=== PATIENT | male | born 1985 | race Caucasian/White ===

== ENCOUNTER 2017-12-30 03:14 | Emergency (ER) | payer BC ==
[2017-12-30 03:27] VITALS: BP 143/92; PULSE 69; RESP 18; TEMP 98
[2017-12-30] MEDS ORDERED: PENICILLIN VK 500MG STARTER 4 TAB BTL PO STA (03:58)
[2017-12-30] MEDS ORDERED: DEXAMETHASONE SOD PHOSPHATE 10 MG/ML 1 ML VIAL IM STA (03:58)
--- NOTE | 2017-12-30 04:00 | ED ---
ENT HPI - General Chief complaint: ENT Stated complaint: Sore throat Time Seen by Provider: 12/30/17 03:30 Source: patient Mode of arrival: ambulatory Limitations: no limitations - History of Present Illness Initial comments: 32-year-old male patient presents the emergency department today for evaluation of sore throat and throat swelling. Patient states he woke up around 1:30 this morning feeling that his throat was swollen. Patient states that he fell asleep in the reclining chair with his head back, states he was snoring more than usual and he woke up when he felt like he couldn't breathe. Patient denies any fever, chills, nasal congestion, or nasal drainage. Denies any history of similar symptoms. Patient denies any recent rash, shortness breath, chest pain, abdominal pain, nausea, vomiting, diarrhea, constipation, back pain , numbness, tingling, dizziness, weakness, hematuria, dysuria, urinary urgency, urinary frequency, headache, visual changes, or any other complaints. - Related Data Previous Rx's Medication Instructions Recorded Penicillin V Potassium [Pen Vee K] 500 mg PO Q6H #40 tablet 12/30/17 Allergies Allergy/AdvReac Type Severity Reaction Status Date / Time No Known Allergies Allergy Verified 12/30/17 03:26 Review of Systems ROS Statement: Those systems with pertinent positive or pertinent negative responses have been documented in the HPI. ROS Other: All systems not noted in ROS Statement are negative. Past Medical History Past Medical History: No Reported History History of Any Multi-Drug Resistant Organisms: None Reported Past Surgical History: Orthopedic Surgery Past Psychological History: No Psychological Hx Reported Smoking Status: Former smoker Past Alcohol Use History: None Reported Past Drug Use History: None Reported General Exam Limitations: no limitations General appearance: alert, in no apparent distress, other (This is a well- developed, well-nourished adult male patient in no acute distress. Vital signs upon presentation are temperature 98.2F, pulse 69, respirations 18, blood pressure 143/92, pulse ox 99% on room air.) Eye exam: Present: normal appearance, PERRL, EOMI. Absent: scleral icterus, conjunctival injection, periorbital swelling ENT exam: Present: mucous membranes moist, other (Patient has edematous, erythematous uvula with what appeared to be petechial hemorrhages. There is some erythema over the tonsils but no tonsillar hypertrophy. Patient is speaking, swelling, and breathing without difficulty.). Absent: normal exam, normal oropharynx Neck exam: Present: normal inspection. Absent: tenderness, meningismus, lymphadenopathy Respiratory exam: Present: normal lung sounds bilaterally. Absent: respiratory distress, wheezes, rales, rhonchi, stridor Cardiovascular Exam: Present: regular rate, normal rhythm, normal heart sounds. Absent: systolic murmur, diastolic murmur, rubs, gallop, clicks GI/Abdominal exam: Present: soft, normal bowel sounds. Absent: distended, tenderness, guarding, rebound, rigid Neurological exam: Present: alert, oriented X3, CN II-XII intact Psychiatric exam: Present: normal affect, normal mood Skin exam: Present: warm, dry, intact, normal color. Absent: rash Course Vital Signs 12/30/17 03:23 Temperature 98 F Pulse Rate 69 Respiratory 18 Rate Blood Pressure 143/92 O2 Sat by Pulse 99 Oximetry Medical Decision Making - Medical Decision Making 32-year-old male patient presented to the emergency department today for evaluation of sore and swollen throat. Physical examination did reveal edematous, erythematous uvula consistent with uvulitis. Patient was given IM dose of Decadron. He'll be treated with penicillin. He is instructed to follow -up with Dr. Kelly for further evaluation. Return parameters were discussed in detail. He verbalizes understanding and agrees with this plan. - Lab Data Lab Results 12/30/17 Range/Units 03:39 Group A Strep Rapid Negative (Negative) Disposition Clinical Impression: Uvulitis Disposition: HOME SELF-CARE Condition: Good Instructions: Uvulitis (ED) Additional Instructions: Complete antibiotic prescription in full. Follow up with ears, nose, and throat specialist for further evaluation. Return here immediately for any new, worsening, or concerning symptoms. Prescriptions: Penicillin V Potassium [Pen Vee K] 500 mg PO Q6H #40 tablet Is patient prescribed a controlled substance at d/c from ED?: No Referrals: Matty Lechuga MD [Primary Care Provider] - 1-2 days Rowdy Kelly DO [Doctor of Osteopathic Medicine] - 1-2 days Time of Disposition: 03:59
== END 2017-12-30 04:15 | disposition home or self-care (01) ==
LOC: EC 03:14
DX: K12.2 Cellulitis and abscess of mouth (principal); J02.9 Acute pharyngitis, unspecified; Z87.891 Personal history of nicotine dependence
CPT/HCPCS: 99283 ×2; 96372 ×2; 87081; 87430; J1100

== ENCOUNTER 2018-01-26 16:14 | Emergency (ER) | payer BC ==
[2018-01-26 16:24] VITALS: BP 154/95; PULSE 96; RESP 20; TEMP 98.4
[2018-01-26] MEDS ORDERED: ceFAZolin IN SWFI 2 GM/20 ML SYRINGE IVP STA (16:33)
--- NOTE | 2018-01-26 16:36 | ED ---
Extremity Problem HPI - General Chief complaint: Extremity Problem,Nontraumatic Stated complaint: knee swelling Time Seen by Provider: 01/26/18 16:27 Source: patient, RN notes reviewed, old records reviewed Mode of arrival: ambulatory Limitations: no limitations - History of Present Illness Initial comments: 32-year-old male presents emergency room seems to plan of left knee pain and redness and swelling for the past day. He reports that yesterday he had a small pimple over the anterior aspect of the knee. 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 Patient reports that he popped the pimple had a small amount of pus coming from the area. Patient reports that he woke up this morning he had significant swelling and redness of the knee. He denies any pain with range of motion of this time. Patient relates is had no fevers or chills. - Related Data Previous Rx's Medication Instructions Recorded Cephalexin [Keflex] 500 mg PO Q6HR 14 Days 01/26/18 Ibuprofen [Motrin] 600 mg PO Q6HR PRN #20 tab 01/26/18 L.acidoph,Paracasei, B.lactis 1 each PO DAILY #30 capsule 01/26/18 [Probiotic] Sulfamethox-Tmp 800-160Mg [Bactrim 2 tab PO Q12HR 14 Days 01/26/18 DS 800-160 mg] Allergies Allergy/AdvReac Type Severity Reaction Status Date / Time No Known Allergies Allergy Verified 01/26/18 16:27 Review of Systems ROS Statement: Those systems with pertinent positive or pertinent negative responses have been documented in the HPI. ROS Other: All systems not noted in ROS Statement are negative. Past Medical History Past Medical History: No Reported History History of Any Multi-Drug Resistant Organisms: None Reported Past Surgical History: Orthopedic Surgery Past Psychological History: No Psychological Hx Reported Smoking Status: Former smoker Past Alcohol Use History: None Reported Past Drug Use History: None Reported General Exam - General Exam Comments Initial Comments: This is a 32-year-old male. Alert and oriented. No significant distress. Limitations: no limitations General appearance: alert, in no apparent distress Head exam: Present: atraumatic Eye exam: Present: normal appearance, PERRL, EOMI. Absent: scleral icterus, conjunctival injection, periorbital swelling ENT exam: Present: normal exam, normal oropharynx, mucous membranes moist Neck exam: Present: normal inspection Respiratory exam: Present: normal lung sounds bilaterally. Absent: respiratory distress, wheezes, rales, rhonchi, stridor Cardiovascular Exam: Present: regular rate, normal rhythm, normal heart sounds. Absent: systolic murmur, diastolic murmur, rubs, gallop, clicks Left Upper Leg exam: Present: normal inspection, full ROM Knee exam: Present: full ROM (Patient has surrounding erythema and swelling over the prepatellar bursa.), tenderness (Has tenderness and swelling noted to the prepatellar bursa.), swelling, erythema. Absent: normal inspection, abrasion, laceration, ecchymosis, deformity Lower Leg exam: Present: normal inspection, full ROM Ankle exam: Present: normal inspection, full ROM Foot/Toe exam: Present: normal inspection, full ROM Neurovascular tendon exam: Present: no vascular compromise Gait: observed and normal Neurological exam: Present: alert, oriented X3, CN II-XII intact Psychiatric exam: Present: normal affect, normal mood Skin exam: Present: warm, dry, intact, normal color. Absent: rash Course Vital Signs 01/26/18 16:21 Temperature 98.4 F Pulse Rate 96 Respiratory 20 Rate Blood Pressure 154/95 O2 Sat by Pulse 100 Oximetry Medical Decision Making - Medical Decision Making is a 32-year-old male presents to tingling of redness swelling and warmth for the past day over his left knee. 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 Patient has evidence of a trip follower bursitis. He did have a small pimple-like area that he popped yesterday. At this time he does likely have some surrounding cellulitis. Range of motion was intact and no significant pain with flexion extension of the knee. Patient did have lab work obtained. We did obtain blood cultures. X-ray of the knee shows evidence of soft tissue swelling but no acute osseous abnormality. I did use the ultrasound over the knee and did identify a significant patellar bursa. I discussed that at this time I do not want to drain the knee and the need to follow-up with orthopedic. However we will start the Patient on anabiotic's. Given referral for compound specialist and anti-inflammatory medication. - Radiology Data Radiology results: report reviewed Soft tissue swelling relating to patellar bursitis. No evidence of any acute fracture. No evidence of foreign body. Disposition Clinical Impression: Bursitis of left knee Disposition: HOME SELF-CARE Condition: Good Instructions: Knee Bursitis (ED) Additional Instructions: Patient has follow-up with primary care physician. Patient should follow-up with compound specialist tomorrow for reevaluation. Take the antibiotic as prescribed. Patient should rest, ice, elevate extremity. Return to the emergency department if any alarming signs or symptoms occur. Prescriptions: Cephalexin [Keflex] 500 mg PO Q6HR 14 Days Ibuprofen [Motrin] 600 mg PO Q6HR PRN #20 tab PRN Reason: Pain L.acidoph,Paracasei, B.lactis [Probiotic] 1 each PO DAILY #30 capsule Sulfamethox-Tmp 800-160Mg [Bactrim DS 800-160 mg] 2 tab PO Q12HR 14 Days Is patient prescribed a controlled substance at d/c from ED?: No Referrals: Matty Lechuga MD [Primary Care Provider] - 1-2 days Michael Cole MD [Medical Doctor] - 1-2 days Time of Disposition: 17:00
[2018-01-26] MEDS ORDERED: SULFAMETH-TMP DS STARTER PACK 2 TAB BTL PO STA (16:38)
[2018-01-26] MEDS ORDERED: KETOROLAC 30 MG/ML 1 ML VIAL IVP STA (17:00)
--- NOTE | 2018-01-26 17:08 | XR ---
EXAMINATION TYPE: XR knee complete LT DATE OF EXAM: 01/26/2018 COMPARISON: NONE HISTORY: Knee pain TECHNIQUE: 3 views FINDINGS: I see no fracture nor dislocation. Joint spaces are normal. There is no sign of joint effus ion. There is soft tissue swelling anterior to the patella. IMPRESSION: Soft tissue swelling could relate to patella bursitis. No fracture.
[2018-01-26 17:40] LABS: Basophils % (A) 0 %; Eosinophils # (A) 0.1 k/uL (0-0.7); Eosinophils % (A) 1 %; HCT 40.4 % (39.0-53.0); HGB 13.9 gm/dL (13.0-17.5); Lymphocytes # (A) 1.4 k/uL (1.0-4.8); Lymphocytes % (A) 19 %; MCH 29.6 pg (25.0-35.0); MCHC 34.6 g/dL (31.0-37.0); MCV 85.5 fL (80.0-100.0); Monocytes # (A) 0.5 k/uL (0-1.0); Monocytes % (A) 6 %; Neutrophils # (A) 5.6 k/uL (1.3-7.7); Neutrophils % (A) 73 %; Platelet Count 194 k/uL (150-450); RBC 4.72 m/uL (4.30-5.90); RDW 12.6 % (11.5-15.5); WBC 7.8 k/uL (3.8-10.6)
[2018-01-26 17:52] LABS: Anion Gap 8 mmol/L; Blood Urea Nitrogen 16 mg/dL (9-20); Calcium 9.2 mg/dL (8.4-10.2); Carbon Dioxide 26 mmol/L (22-30); Chloride 106 mmol/L (98-107); Glucose 104 mg/dL (74-99); Potassium 3.9 mmol/L (3.5-5.1); Sodium 140 mmol/L (137-145)
== END 2018-01-26 18:15 | disposition home or self-care (01) ==
LOC: EC 16:14
DX: M70.52 Other bursitis of knee, left knee (principal); Z87.891 Personal history of nicotine dependence
CPT/HCPCS: 36415; 80048; 85025; 87040; 73562; 99284; 96374; 96375; J1885; J0690

== ENCOUNTER 2019-02-17 05:44 | Emergency (ER) | payer BC ==
--- NOTE | 2019-02-17 06:10 | ED ---
General Adult HPI - General Chief complaint: Abdominal Pain Stated complaint: rib pain Time Seen by Provider: 02/17/19 05:55 Source: patient, RN notes reviewed Mode of arrival: ambulatory Limitations: no limitations - History of Present Illness Initial comments: This a 33-year-old male presents emergency Department chief complaint right- sided rib pain. Patient states that he was helping his jose cruz states that he slipped falling onto the rail of the trailer. Patient states happened on morning. Patient states she's had increasing pain in his ribs and some shortness of breath. Patient states is more pain with deep inspiration. Patient denies any abdominal pain, nausea, vomiting diarrhea constipation no abdominal or chest wall bruising noted. Patient noticed significant head injury patient offers no other complaints. - Related Data Previous Rx's Medication Instructions Recorded Ibuprofen [Motrin] 600 mg PO Q8HR PRN #30 tab 02/17/19 Allergies Allergy/AdvReac Type Severity Reaction Status Date / Time No Known Allergies Allergy Verified 01/26/18 16:27 Review of Systems ROS Statement: Those systems with pertinent positive or pertinent negative responses have been documented in the HPI. ROS Other: All systems not noted in ROS Statement are negative. Past Medical History Past Medical History: No Reported History History of Any Multi-Drug Resistant Organisms: None Reported Past Surgical History: Orthopedic Surgery Additional Past Surgical History / Comment(s): left hand Past Psychological History: No Psychological Hx Reported Smoking Status: Current every day smoker Past Alcohol Use History: Rare Past Drug Use History: None Reported General Exam Limitations: no limitations General appearance: alert, in no apparent distress Head exam: Present: atraumatic, normocephalic, normal inspection Eye exam: Present: normal appearance, PERRL, EOMI. Absent: scleral icterus, conjunctival injection, periorbital swelling ENT exam: Present: normal exam, normal oropharynx, mucous membranes moist Neck exam: Present: normal inspection, full ROM. Absent: tenderness, meningismus, lymphadenopathy Respiratory exam: Present: normal lung sounds bilaterally, chest wall tenderness (Moderate right-sided anterior lateral). Absent: respiratory distress, wheezes, rales, rhonchi, stridor Cardiovascular Exam: Present: regular rate, normal rhythm, normal heart sounds. Absent: systolic murmur, diastolic murmur, rubs, gallop, clicks GI/Abdominal exam: Present: soft, normal bowel sounds. Absent: distended, tenderness, guarding, rebound, rigid Back exam: Absent: CVA tenderness (R), CVA tenderness (L) Neurological exam: Present: alert, oriented X3, CN II-XII intact Skin exam: Present: warm, dry, intact, normal color. Absent: rash Course Vital Signs 02/17/19 05:48 Temperature 97.4 F L Pulse Rate 66 Respiratory 20 Rate Blood Pressure 152/99 O2 Sat by Pulse 99 Oximetry Medical Decision Making - Medical Decision Making Chest x-ray with rib series reviewed no acute fracture or pneumothorax. Patient has a rib contusion will be treated with anti-inflammatories, pain medication we discussed making sure that he is taking deep inspiration to prevent a possible pneumonia. We discussed return parameters. Disposition Clinical Impression: Contusion of rib on right side Disposition: HOME SELF-CARE Condition: Stable Instructions (If sedation given, give patient instructions): Rib Contusion (ED) Additional Instructions: Please return to the Emergency Department if symptoms worsen or any other concerns. Prescriptions: Ibuprofen [Motrin] 600 mg PO Q8HR PRN #30 tab PRN Reason: Pain Is patient prescribed a controlled substance at d/c from ED?: No Referrals: Matty Lechuga MD [Primary Care Provider] - 1-2 days Time of Disposition: 06:58
--- NOTE | 2019-02-17 06:41 | XR ---
EXAM: XR Right Ribs, 2 Views CLINICAL HISTORY: ITS.REASON XR Reason: pain TECHNIQUE: Frontal and oblique views of the right ribs. COMPARISON: No relevant prior studies available. FINDINGS: Lungs: No consolidation or mass. Pleural space: No effusion. Bones/joints: No acute fracture. No dislocation. IMPRESSION: No acute osseous abnormalities.
[2019-02-17] MEDS ORDERED: ACET/COD 300 MG/30 MG STARTER PACK 6 TAB BTL PO STA (06:58)
[2019-02-17 07:06] VITALS: BP 135/89; PULSE 76; RESP 17; TEMP 98.7
== END 2019-02-17 07:07 | disposition home or self-care (01) ==
LOC: EC 05:44
DX: S20.211A Contusion of right front wall of thorax, initial encounter (principal); F17.200 Nicotine dependence, unspecified, uncomplicated; W01.0XXA Fall on same level from slipping, tripping and stumbling without subsequent striking against object, initial encounter
CPT/HCPCS: 99283

== ENCOUNTER → 2020-05-27 | Outpatient (CLI) | payer BC ==
--- NOTE | 2020-05-27 11:54 | XR ---
EXAMINATION TYPE: XR chest 2V DATE OF EXAM: 05/27/2020 COMPARISON: 02/17/2019 HISTORY: Chest pain TECHNIQUE: Frontal and lateral views of the chest are obtained. FINDINGS: There is no focal air space opacity. There is an estimated 10% right-sided pneumothorax identified. No obvious displaced rib fracture seen with certainty at this time. Cardiomediastinal silhouette is within normal limits. IMPRESSION: 1. estimated 10% right-sided pneumothorax identified.
== END | disposition home or self-care (01) ==
LOC: RADXRMAIN 10:38
DX: J93.9 Pneumothorax, unspecified (principal)
CPT/HCPCS: 71046

== ENCOUNTER → 2020-06-19 | Outpatient (CLI) | payer BC ==
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
== END | disposition home or self-care (01) ==
LOC: RADXRMAIN 09:36
PROVIDERS: ATTEND Internal Medicine
DX: S12.000A Unspecified displaced fracture of first cervical vertebra, initial encounter for closed fracture (principal)
CPT/HCPCS: 72050

== ENCOUNTER → 2021-03-23 | Outpatient (CLI) | payer BC ==
--- NOTE | 2021-03-23 15:59 | XR ---
Cervical, thoracic, lumbar spine HISTORY: Pain, are 52 5 views of the cervical spine, frontal and lateral views of thoracic spine and 3 views, 3 views of th e lumbar spine submitted. Correlation to prior cervical spine 06/19/2020, prior thoracic spine 01/16/20 10 Lumbar spine shows normal vertebral body height, alignment, and bone mineralization. Some loss of dis c height present L5-S1. Cervical spine shows a similar appearance. Cervical vertebral bodies show preserved height, alignment and minimal anterolisthesis grade 1 C2-3, the lucency present at the level of the posterior elements seen on prior exam at C2 are no longer seen, there is some spondylosis present. Prevertebral soft ti ssues are normal. Loss of disc height is present at C2-3, C5-6. There is no foraminal encroachment. Thoracic spine: Thoracic vertebral bodies show preserved height, alignment, and bone mineralization. There is mild multilevel spondylosis. Loss of disc height is present at the intervertebral levels of the upper and mid thoracic spine. IMPRESSION: Findings suggest interval healing of patient's C2 fracture. Mild degenerative disc diseas e.
== END | disposition home or self-care (01) ==
LOC: RADXRMAIN 11:36
PROVIDERS: ATTEND Physician Assistant
DX: M50.31 Other cervical disc degeneration, high cervical region (principal)
CPT/HCPCS: 72050; 72072; 72100

== ENCOUNTER 2021-03-25 08:10 | Emergency (ER) | payer BC ==
[2021-03-25 08:16] VITALS: TEMP 98.1
--- NOTE | 2021-03-25 08:56 | ED ---
Extremity Problem HPI - General Chief complaint: Extremity Problem,Nontraumatic Stated complaint: Leg Pain/Numbness Time Seen by Provider: 03/25/21 08:16 Source: patient, RN notes reviewed Mode of arrival: ambulatory Limitations: no limitations - History of Present Illness Initial comments: This a 35-year-old male presents emergency Department chief complaint of leg, back pain. Patient states it started approximately one week ago with right leg first digit toe pain. Patient states that it seemed to progress. He states now he has bilateral leg numbness and tingling states that he feels like there is a fire spots on his legs and causes him to twitch. Patient was seen at Dr. Robert's office was given Valium, gabapentin, steroid pack patient was sent for x-rays. Patient states document better. He denies any bowel bladder incontinence or retentionand anesthesias. - Related Data Previous Rx's Medication Instructions Recorded Ibuprofen [Motrin] 600 mg PO Q8HR PRN #30 tab 02/17/19 Gabapentin [Neurontin] 100 mg PO TID #21 cap 03/25/21 predniSONE 50 mg PO DAILY #5 tab 03/25/21 Allergies Allergy/AdvReac Type Severity Reaction Status Date / Time No Known Allergies Allergy Verified 01/26/18 16:27 Review of Systems ROS Statement: Those systems with pertinent positive or pertinent negative responses have been documented in the HPI. ROS Other: All systems not noted in ROS Statement are negative. Past Medical History Past Medical History: No Reported History History of Any Multi-Drug Resistant Organisms: None Reported Past Surgical History: Orthopedic Surgery Additional Past Surgical History / Comment(s): left hand Past Psychological History: No Psychological Hx Reported Smoking Status: Current every day smoker Past Alcohol Use History: Occasional Past Drug Use History: Marijuana General Exam Limitations: no limitations General appearance: alert, in no apparent distress Head exam: Present: atraumatic, normocephalic, normal inspection Eye exam: Present: normal appearance, PERRL, EOMI. Absent: scleral icterus, conjunctival injection, periorbital swelling Neck exam: Present: normal inspection, full ROM. Absent: tenderness, meningismus, lymphadenopathy Respiratory exam: Present: normal lung sounds bilaterally. Absent: respiratory distress, wheezes, rales, rhonchi, stridor Cardiovascular Exam: Present: regular rate, normal rhythm, normal heart sounds. Absent: systolic murmur, diastolic murmur, rubs, gallop, clicks GI/Abdominal exam: Present: soft, normal bowel sounds. Absent: distended, tenderness, guarding, rebound, rigid Extremities exam: Present: other (Pedal pulses are equal bilaterally, equal color equal warmth) Back exam: Present: full ROM. Absent: tenderness, muscle spasm, paraspinal tenderness, vertebral tenderness Neurological exam: Present: alert, oriented X3, CN II-XII intact, reflexes normal. Absent: motor sensory deficit Course Vital Signs 03/25/21 08:13 Temperature 98.1 F Pulse Rate 104 H Respiratory 18 Rate Blood Pressure 161/96 O2 Sat by Pulse 98 Oximetry Medical Decision Making - Medical Decision Making CT shows evidence of disc bulging at L4-L5 and L5-S1. Patient does have radicular symptoms. Patient will have increase of steroids, gabapentin. Patient will be discharged as he has no red flag symptoms or follow with demo specialist. Disposition Clinical Impression: Lumbar radiculopathy, chronic, Bulging lumbar disc Disposition: HOME SELF-CARE Condition: Stable Instructions (If sedation given, give patient instructions): Lumbar Radiculopathy (ED) Additional Instructions: Please return to the Emergency Department if symptoms worsen or any other co ncerns. Prescriptions: Gabapentin [Neurontin] 100 mg PO TID #21 cap predniSONE 50 mg PO DAILY #5 tab Is patient prescribed a controlled substance at d/c from ED?: Yes When asked, does pt state using other controlled substances?: Yes If prescribed controlled substance>3 days was MAPS reviewed?: Yes Referrals: Matty Lechuga MD [Primary Care Provider] - 1-2 days Pennie De DO [Doctor of Osteopathic Medicine] - 1-2 days Time of Disposition: 09:56
--- NOTE | 2021-03-25 09:49 | CT ---
EXAMINATION TYPE: CT lumbar spine wo con DATE OF EXAM: 03/25/2021 9:35 AM COMPARISON: None HISTORY: Leg pain and numbness CT DLP: 815.4 mGycm Automated exposure control for dose reduction was used. Unenhanced CT of the lumbar spine was performed. Bone and soft tissue window settings are submitted as well as coronal and sagittal reconstructions. L1-L2: Normal disc space height. No disc herniation protrusion or central stenosis. No facet joint arthropathy. No evidence for foraminal encroachment. L2-L3: Normal disc space height. No disc herniation protrusion or central stenosis. No facet joint arthropathy. No evidence for foraminal encroachment. L3-L4: Normal disc space height. No disc herniation protrusion or central stenosis. No facet joint arthropathy. No evidence for foraminal encroachment. L4-L5: Normal disc space height. Mild posterior disc bulge. No herniation or central stenosis. No fac et joint arthropathy. No evidence for foraminal encroachment. L5-S1: Mild degenerative disc space narrowing. Posterocentral disc bulge effaces the ventral thecal s ac. No evidence for lateral recess stenosis or central stenosis. Mild left foraminal encroachment. No facet joint arthropathy. IMPRESSION: Mild disc bulging at L4-5 and L5-S1. See above.
[2021-03-25] MEDS ORDERED: ACET/COD 300 MG/30 MG STARTER PACK 6 TAB BTL PO STA (09:55)
[2021-03-25 10:06] VITALS: BP 155/89; PULSE 87; RESP 20
== END 2021-03-25 10:06 | disposition home or self-care (01) ==
LOC: EC 08:10
DX: M51.16 Intervertebral disc disorders with radiculopathy, lumbar region (principal); M79.674 Pain in right toe(s); F17.200 Nicotine dependence, unspecified, uncomplicated
CPT/HCPCS: 72131; 99284

== ENCOUNTER → 2021-07-14 | Outpatient (CLI) | payer BC ==
--- NOTE | 2021-07-14 14:10 | XR ---
EXAMINATION TYPE: XR chest 2V, XR ribs RT DATE OF EXAM: 07/14/2021 COMPARISON: Chest x-ray May 27, 2020. Right-sided rib x-rays February 17, 2019. HISTORY: Chest and right-sided rib pain with breathing. TECHNIQUE: Frontal and lateral views of the chest are obtained. A frontal and oblique images of the right-sided ribs. FINDINGS: There is mild chronic parenchymal changes bilaterally without suspicious focal air space opacity, pleural effusion, or pneumothorax seen. The cardiac silhouette size remains within normal limits. The osseous structures are intact. Dedicated images of the right-sided ribs show no acute displaced fractures. Overlying soft tissue is unremarkable. IMPRESSION: 1. No acute cardiopulmonary process. 2. No acute displaced right-sided rib fractures.
== END | disposition home or self-care (01) ==
LOC: RADXRMAIN 12:16
PROVIDERS: ATTEND Internal Medicine
DX: R07.81 Pleurodynia (principal); M54.6 Pain in thoracic spine
CPT/HCPCS: 71046

== ENCOUNTER 2022-11-09 18:23 | Emergency (ER) | payer BC ==
[2022-11-09 19:23] VITALS: RESP 18
[2022-11-09] MEDS ORDERED: LIDOCAINE 1% INJ 10MG/ML (30 ML VIAL-PF) SQ ONE (19:53)
--- NOTE | 2022-11-09 19:54 | ED ---
General Adult HPI - General Chief complaint: Wound/Laceration Stated complaint: head laceration Time Seen by Provider: 11/09/22 19:34 Source: patient Mode of arrival: ambulatory Limitations: no limitations - History of Present Illness Initial comments: 36-year-old female with no significant past medical history presents to the emergency department with a chief complaint of facial laceration. Patient reports every he was the pool when he U was using [him to right eyebrow. He denies any loss of consciousness or anticoagulant use. He believes he is up-to-date on his tetanus vaccination. Denies any dizziness, lightheaded, nausea, vomiting, vision changes or vision loss. - Related Data Previous Rx's Medication Instructions Recorded Ibuprofen [Motrin] 600 mg PO Q8HR PRN #30 tab 02/17/19 Gabapentin [Neurontin] 100 mg PO TID #21 cap 03/25/21 predniSONE 50 mg PO DAILY #5 tab 03/25/21 Allergies Allergy/AdvReac Type Severity Reaction Status Date / Time No Known Allergies Allergy Verified 11/09/22 19:23 Review of Systems ROS Statement: Those systems with pertinent positive or pertinent negative responses have been documented in the HPI. ROS Other: All systems not noted in ROS Statement are negative. Past Medical History Past Medical History: No Reported History History of Any Multi-Drug Resistant Organisms: None Reported Past Surgical History: Orthopedic Surgery Additional Past Surgical History / Comment(s): left hand Past Psychological History: No Psychological Hx Reported Smoking Status: Current every day smoker Past Alcohol Use History: Occasional Past Drug Use History: Marijuana General Exam - General Exam Comments Initial Comments: General: Alert, in no acute distress Head: atraumatic normocephalic. Eyes PERRL, EOMI intact, mucous membranes moist, 1.5 cm laceration to right eyebrow with mild bleeding and no crepitus Respiratory: Lungs clear to auscultation bilaterally Cardiovascular: Heart rate regular rate and rhythm Abdominal: Soft without guarding or rebound Extremities: Normal inspection with full range of motion and normal capillary refill Neuroogic: alert and oriented 3, CN II-XII intact, able to ambulate with steady gait Skin: warm dry and intact with normal color Limitations: no limitations Course Vital Signs 11/09/22 11/09/22 19:21 20:46 Temperature 98.8 F 98.4 F Pulse Rate 79 73 Respiratory 18 18 Rate Blood Pressure 163/106 147/96 O2 Sat by Pulse 97 99 Oximetry Procedures - Laceration Laceration #1 Indication: laceration Site: face (right eyebrow ) Size (cm): 1 Description: linear Depth: simple, single layer Anesthetic Used: lidocaine 1% Anesthesia Technique: local infiltration Amount (mls): 10 Pre-repair: wound explored, irrigated extensively Type of Sutures: vicryl Size of Sutures: 6-0 Number of Sutures: 4 Technique: simple, interrupted Complications: pain, bleeding, nerve injury, allergic reaction Patient Tolerated Procedure: well, no complications Medical Decision Making - Medical Decision Making Was pt. sent in by a medical professional or institution (, [facility], [facility], urgent care, hospital, or retirement...) When possible be specific @ -[No] Did you speak to anyone other than the patient for history (EMS, parent, family, police, friend...)? What history was obtained from this source @ -[No] Did you review nursing and triage notes (agree or disagree)? Why? @ -[I reviewed and agree with nursing and triage notes] Were old charts reviewed (outside hosp., previous admission, EMS record, old EKG, old radiological studies, urgent care reports/EKG's, retirement records)? Report findings @ -[No old charts were reviewed] Differential Diagnosis (chest pain, altered mental status, abdominal pain women, abdominal pain men, vaginal bleeding, weakness, fever, dyspnea, syncope, headache, dizziness, GI bleed, back pain, seizure, CVA, palpatations, mental health, musculoskeletal)? @ -[not applicable] EKG interpreted by me (3pts min.). @ -[As above] X-rays interpreted by me (1pt min.). @ -[None done] CT interpreted by me (1pt min.). @ -[None done] U/S interpreted by me (1pt. min.). @ -[None done] What testing was considered but not performed or refused? (CT, X-rays, U/S, labs)? Why? @ -[None] What meds were considered but not given or refused? Why? @ -[None] Did you discuss the management of the patient with other professionals (professionals i.e. , PA, [facility], lab, RT, psych nurse, child protective services social worker, plasma center nurse, teacher, correction officer, residential case manager)? Give summary @ -[No] Was smoking cessation discussed for >3mins.? @ -[No] Was critical care preformed (if so, how long)? @ -[No] Were there social determinants of health that impacted care today? How? (Homelessness, low income, unemployed, alcoholism, drug addiction, transportation, low edu. Level, literacy, decrease access to med. care, care home, rehab)? @ -[No] Was there de-escalation of care discussed even if they declined (Discuss DNR or withdrawal of care, Hospice)? DNR status @ -[No] What co-morbidities impacted this encounter? (DM, HTN, Smoking, COPD, CAD, Cancer, CVA, ARF, Chemo, Hep., AIDS, mental health diagnosis, sleep apnea, morbid obesity)? @ -[None] Was patient admitted / discharged? Hospital course, mention meds given and route, prescriptions, significant lab abnormalities, going to OR and other pertinent info. @ Discharged. This is a pleasant 36-year-old male who presents to the emergency department with right eyebrow laceration. Patient had a thorough history and physical exam performed on the ED. Patient had 4 sutures placed for which she tolerated well and no complications. He'll be discharged home in stable condition. Return precautions were discussed at length. Case discussed with MATT Magana who agrees with plan of care Undiagnosed new problem with uncertain prognosis? @ -[No] Drug Therapy requiring intensive monitoring for toxicity (Heparin, Nitro, Insulin, Cardizem)? @ -[No] Were any procedures done? @ -[No] Diagnosis/symptom? @ -Laceration Acute, or Chronic, or Acute on Chronic? @ -Acute Uncomplicated (without systemic symptoms) or Complicated (systemic symptoms)? @ -Uncomplicated Side effects of treatment? @ -[No] Exacerbation, Progression, or Severe Exacerbation? @ -[No] Poses a threat to life or bodily function? How? (Chest pain, USA, MS, pneumonia, PE, COPD, DKA, ARF, appy, cholecystitis, CVA, Diverticulitis, Homicidal, Suicidal, threat to staff... and all critical care pts) @ -Low Likelihood Disposition Clinical Impression: Laceration Disposition: HOME SELF-CARE Condition: Stable Instructions (If sedation given, give patient instructions): Care For Your Stitches (DC), Laceration (ED) Additional Instructions: Please have stitches removed in 7-10 days Please return to the nearest emergency department if symptoms worsen or persist Is patient prescribed a controlled substance at d/c from ED?: No Referrals: Matty Lechuga MD [Primary Care Provider] - 1-2 days Time of Disposition: 19:55
[2022-11-09 20:48] VITALS: BP 147/96; PULSE 73; TEMP 98.4
== END 2022-11-09 20:46 | disposition home or self-care (01) ==
LOC: EC 18:23
DX: S01.111A Laceration without foreign body of right eyelid and periocular area, initial encounter (principal); F17.200 Nicotine dependence, unspecified, uncomplicated; F12.90 Cannabis use, unspecified, uncomplicated; X58.XXXA Exposure to other specified factors, initial encounter; Y92.009 Unspecified place in unspecified non-institutional (private) residence as the place of occurrence of the external cause
CPT/HCPCS: 99282; 12011; J2001